=== PATIENT | female | born 1965 | race Caucasian/White ===

== ENCOUNTER 2018-11-05 10:07 | Emergency (ER) | payer SELFPAY ==
[~2018-11-05] VITALS: Ht 160 cm; Wt 99.8 kg
[2018-11-05 10:18] VITALS: Ht 160 cm; Wt 99.8 kg
[2018-11-05 11:35] VITALS: BP 109/61
== END 2018-11-05 11:35 | disposition home or self-care (01) ==
LOC: ED 10:07
DX: S82.831A Other fracture of upper and lower end of right fibula, initial encounter for closed fracture (principal); X50.1XXA Overexertion from prolonged static or awkward postures, initial encounter; Y93.89 Activity, other specified; Y92.89 Other specified places as the place of occurrence of the external cause; Y99.8 Other external cause status
CPT/HCPCS: Q0092